=== PATIENT | female | born 1965 | race Caucasian/White ===

== ENCOUNTER 2025-07-25 21:25 | Emergency (ER) | payer BC, MEDICAID ==
[~2025-07-25] VITALS: Ht 162.6 cm; Wt 63.5 kg
[2025-07-25] MEDS ORDERED: DIPH25CA51 PO (21:59)
[2025-07-25] MEDS ORDERED: ONDA4TAB5 PO (21:59)
[2025-07-25] MEDS: IV NS 0.9% 1,000 ML BAG IV ONE (22:17)
[2025-07-25 22:21] LABS: PLATELET COUNT (AUTO) 226 K/uL (150-450); RED BLOOD CELL COUNT(AUTO) 4.00 MIL/uL (4.0-5.2); RED CELL DISTRIBUTION WIDTH 13.0 % (11.5-15.0); WHITE BLOOD COUNT (AUTO) 6.7 K/uL (4.3-11.0)
[2025-07-25 22:27] LABS: CALCIUM, SERUM 9.0 mg/dL (8.5-10.1); CREATININE 0.7 mg/dL (0.6-1.3); SODIUM SERUM 137.0 mmol/L (136-145); UREA NITROGEN, BLOOD 11.0 mg/dL (7-18)
[2025-07-25 22:33] LABS: ASPARTATE AMINOTRANSFERASE 23.0 U/L (15-37); TOTAL PROTEIN, SERUM 6.3 g/dL (6.4-8.2)
[2025-07-26 00:51] VITALS: BP 128/75; TEMP 98.2; O2SAT 97
== END 2025-07-26 00:51 | disposition home or self-care (01) ==
LOC: ER 21:39
DX: G47.00 Insomnia, unspecified (principal); R51.9 Headache, unspecified
CPT/HCPCS: 99283; 96374; 96361; 85025; 83690; 83735; 36415; 80053; J1200; J7030